=== PATIENT | male | born 1960 | race Caucasian/White ===

== ENCOUNTER 2017-01-12 10:19 | Inpatient (IN) | payer OTHER ==
[2017-01-12 11:38] LABS: BASO # 0.02 K/mm3 (0.0-2.0); BASO % 0.2 % (0.0-3.0); EOS # 0.1 (0.0-0.7); EOS % 1.1 % (1.5-5.0); GRAN # 4.85 (1.4-6.5); GRAN % 52.6 % (50.0-68.0); LYMPH # 3.8 (1.2-3.4); LYMPH % 41.3 % (22.0-35.0); MEAN CELL VOLUME 86.9 fL (80.0-105.0); MEAN CORPUSCULAR HEMOGLOBIN 30.2 pg (25.0-35.0); MEAN CORPUSCULAR HGB CONC 34.7 g/dl (31.0-37.0); MEAN PLATELET VOLUME 10.4 fl (7.0-11.0); MONO # 0.4 (0.1-0.6); MONO % 4.8 % (1.0-6.0); PLATELET COUNT 167 10^3/uL (120.0-450.0); RBC 4.64 10^6/uL (3.5-6.1); RED CELL DISTRIBUTION WIDTH 13.1 % (11.5-14.5); WHITE BLOOD COUNT 9.2 10^3/ul (4.5-11.0)
--- NOTE | 2017-01-12 11:39 | ED PDOC ---
Arrival/HPI - General Chief Complaint: Shortness Of Breath Time Seen by Provider: 01/12/17 10:25 Historian: Patient - History of Present Illness Narrative History of Present Illness (Text): 01/12/17 11:42 A 56 year old male, whose past medical history includes diabetes, presents to the emergency department complaining of exertional chest pain and dyspnea on exertion for about a week. Denies any other complaints at this time. PMD: Dr. Enciso Symptom Onset: Sudden Symptom Course: Unchanged Activities at Onset: Rest Context: Home Past Medical History - Provider Review Nursing Documentation Reviewed: Yes - Cardiac Hx Cardiac Disorders: Yes Hx Hypertension: Yes - Pulmonary Hx Respiratory Disorders: No - Neurological Hx Neurological Disorder: No - HEENT Hx HEENT Disorder: No - Renal Hx Renal Disorder: No - Endocrine/Metabolic Hx Endocrine Disorders: Yes Hx Diabetes Mellitus Type 2: Yes - Hematological/Oncological Hx Blood Disorders: No - Integumentary Hx Dermatological Disorder: No - Musculoskeletal/Rheumatological Hx Musculoskeletal Disorders: No - Gastrointestinal Hx Gastrointestinal Disorders: No - Genitourinary/Gynecological Hx Genitourinary Disorders: No - Psychiatric Hx Psychophysiologic Disorder: No Hx Substance Use: No Family/Social History - Physician Review Nursing Documentation Reviewed: Yes Family/Social History: No Known Family HX Smoking Status: Never Smoked Hx Alcohol Use: No Hx Substance Use: No Allergies/Home Meds Allergies/Adverse Reactions: Allergies No Known Allergies Allergy (Verified 01/12/17 10:30) Home Medications: Home Meds Medication Instructions Recorded Confirmed Amoxicillin [Amoxil 500 mg Cap] 500 mg PO BID 01/12/17 01/12/17 Cetirizine HCl [Allergy Relief] 10 mg PO DAILY 01/12/17 01/12/17 Clarithromycin [Biaxin Filmtab] 500 mg PO BID 01/12/17 01/12/17 Ergocalciferol (Vitamin D2) 50,000 unit PO SUN 01/12/17 01/12/17 [Vitamin D2] Montelukast [Singulair] 10 mg PO DAILY 01/12/17 01/12/17 Omeprazole 20 mg PO DAILY 01/12/17 01/12/17 Review of Systems - Physician Review All systems were reviewed & negative as marked: Yes Physical Exam - Physical Exam Narrative Physical Exam (Text): 01/12/17 11:40 - Review of Systems Constitutional: Normal. absent: Fatigue, Weight Change, Fevers Eyes: Normal ENT: Normal Respiratory: dyspnea on exertion absent: SOB, Cough, Sputum Cardiovascular: chest pain absent: Palpitations, Syncope Gastrointestinal: Normal absent: Abdominal pain, Diarrhea, Nausea, Vomiting Genitourinary: Normal. absent: Dysuria, Frequency, Hematuria Musculoskeletal: Normal. absent: Arthralgias, Back Pain, Neck Pain Skin: Normal Neurological: Normal absent: Focal Weakness Endocrine: Normal Hemo/Lymphatic: Normal Psychiatric: Normal - Physical exam Patient appears age appropriate, speaking full sentences without difficulty - Systems Exam Head: Present: Atraumatic, Normocephalic Pupils: Present: PERRL Extraocular Muscles: Present: EOMI Conjunctiva: Present: Normal Mouth: Present: Moist Mucous Membranes Neck: Present: Normal Range of Motion. No: MIDLINE TENDERNESS, Paraspinal Tenderness Respiratory/Chest: Present: Clear to Auscultation, Good Air Exchange. No: Respiratory Distress, Accessory Muscle Use, Tachypnic Cardiovascular: Present: Regular Rate and Rhythm, Normal S1, S2, Peripheral Pulses Present. No: Murmurs Abdomen: Present: Normal Bowel Sounds, No: Tenderness, Peritoneal Signs, Rebound, Guarding, Distention Back: Present: Normal Inspection. No: Midline Tenderness, Paraspinal Tenderness Upper Extremity: Present: Normal Inspection. No: Cyanosis, Edema Lower Extremity: Present: Normal Inspection. No: Edema Neurological: Present: GCS=15, Speech Normal, cranial nerves II through XII fully intact with no cerebellar abnormality, neuro-sensory fully intact. No focal neurological deficits. Skin: Present: Warm, Dry, Normal Color. No: Rashes Lymphatic: Present: OX3, NI, NC Psychiatric: Present: Alert, Oriented x 3, Normal Insight, Normal Concentration Vital Signs Reviewed: Yes Vital Signs Temp Pulse Resp BP Pulse Ox 01/12/17 13:27 83 18 110/76 96 01/12/17 12:27 88 18 126/77 98 01/12/17 11:00 16 01/12/17 10:30 97.5 F L 100 H 20 137/92 H 96 Temperature: Afebrile Blood Pressure: Hypertensive Pulse: Regular Respiratory Rate: Normal Appearance: Positive for: Well-Appearing, Non-Toxic, Comfortable Pain Distress: None Mental Status: Positive for: Alert and Oriented X 3 Medical Decision Making ED Course and Treatment: 01/12/17 11:34 Impression: A 56 year old male with chest pain. Differential Diagnosis included but are not limited to: Congestive heart failure vs. PE vs. acute coronary syndrome vs. pneumonia Plan: -- EKG -- chest xray -- labs -- Aspirin, Nitroglycerin -- Reassess and disposition Progress Notes: EKG: Ordered, reviewed, and independently interpreted the EKG. Rate : 103 BPM Rhythm : Sinus tachycardic Interpretation : No ST segment elevations, S1 Q3T3 pattern Comparison : No previous EKG for comparison. 01/12/17 13:09 pt states pain better with asa/ntg ddimer positive troponin and BNP elevated VSS lovenox ordered CTA pending pt and family have been made aware of findings and plan Chest xray interpreted by ED physician shows no pneumothorax, no cardiomegaly, no infiltrates 01/12/17 14:[address] Enciso, accepted admission with Angel Diallo and Jonathon on consult 01/12/17 15:[address] Moreau, states pt has a large PE with R. heart strain. lovenox already ordered pt in no distress at this time Dr. Vannessa Neff paged 01/12/17 16:00 01/12/17 16:[address] Rojas from [facility], [facility] will evaluate 01/12/17 16:[address] Rojas, accepted to the [facility] dw Dr. Vannessa Neff, [facility] will see pt - Lab Interpretations Lab Results: 01/12/17 11:25 01/12/17 11:25 Lab Results 01/12/17 11:25: Sodium 136, Potassium 4.8, Chloride 104, Carbon Dioxide 21, Anion Gap 16, BUN 16, Creatinine 1.1, Est GFR ( Amer) > 60, Est GFR (Non- Af Amer) > 60, Random Glucose 158 H, Calcium 9.4, Total Bilirubin 1.2, AST 38, ALT 72 H, Alkaline Phosphatase 70, Lactate Dehydrogenase 559, Total Creatine Kinase 82, Troponin I 0.42 H*, NT-Pro-B Natriuret Pep 2220 H, Total Protein 7.2 , Albumin 4.0, Globulin 3.2, Albumin/Globulin Ratio 1.3 01/12/17 11:25: PT 12.7 H, INR 1.18 H, APTT 28.3, D-Dimer, Quantitative 3.01 H 01/12/17 11:25: WBC 9.2, RBC 4.64, Hgb 14.0, Hct 40.3 L, MCV 86.9, MCH 30.2, MCHC 34.7, RDW 13.1, Plt Count 167, MPV 10.4, Gran % 52.6, Lymph % (Auto) 41.3 H , [place] % (Auto) 4.8, Eos % (Auto) 1.1 L, Baso % (Auto) 0.2, Gran # 4.85, Lymph # 3.8 H, [place] # 0.4, Eos # 0.1, Baso # 0.02 I have reviewed the lab results: Yes - RAD Interpretation Radiology Orders: 01/12/17 11:10 CHEST PORTABLE [RAD] Stat 01/12/17 12:00 ANGIO CHEST PE PROTOCOL [CT] Stat 01/12/17 16:25 DUPLEX LOWER EXTRM VEIN BILAT [US] Stat - EKG Interpretation Interpreted by ED Physician: Yes Type: 12 lead EKG - Medication Orders Current Medication Orders: Discontinued Medications Aspirin (Aspirin Chewable) 324 mg PO STAT STA Stop: 01/12/17 11:11 Last Admin: 01/12/17 11:27 Dose: 324 mg Enoxaparin Sodium (Lovenox) 90 mg SC STAT STA PRN Reason: Protocol Stop: 01/12/17 12:25 Last Admin: 01/12/17 12:33 Dose: 90 mg Iodixanol (Visipaque) Confirm Administered Dose 150 ml IV .STK-MED ONE Stop: 01/12/17 14:20 Nitroglycerin (Nitrostat Sl Tab) 0.3 mg SL STAT STA Stop: 01/12/17 11:11 Last Admin: 01/12/17 11:27 Dose: 0.3 mg - Scribe Statement The provider has reviewed the documentation as recorded by the Alvaro Fontenot Provider Scribe Attestation: All medical record entries made by the Mairaibshanthi were at my direction and personally dictated by me. I have reviewed the chart and agree that the record accurately reflects my personal performance of the history, physical exam, medical decision making, and the department course for this patient. I have also personally directed, reviewed, and agree with the discharge instructions and disposition. Disposition/Present on Arrival - Present on Arrival Any Indicators Present on Arrival: No History of DVT/PE: No History of Uncontrolled Diabetes: No Urinary Catheter: No History of Decub. Ulcer: No History Surgical Site Infection Following: None - Disposition Have Diagnosis and Disposition been Completed?: Yes Diagnosis: Pulmonary embolism Disposition: HOSPITALIZED Disposition Time: 14:02 Patient Plan: Admission Condition: FAIR Referrals: Gloria Enciso MD [Primary Care Provider] - Follow up with primary
[2017-01-12 11:47] LABS: INR 1.18 (0.93-1.08); PARTIAL THROMBOPLASTIN TIME 28.3 Seconds (23.7-30.8); PROTHROMBIN TIME 12.7 Seconds (9.9-11.8)
[2017-01-12 11:48] LABS: ALB/GLOB RATIO 1.3 (1.1-1.8); ALT/SGPT 72 U/L (7-56); AST/SGOT 38 U/L (15-59); BLOOD UREA NITROGEN 16 mg/dL (7-21); CALCIUM 9.4 mg/dL (8.4-10.5); D DIMER 3.01 mg/L FEU (0-0.50); GFR AFRICAN-AMERICAN > 60; GFR NON-AFRICAN AMERICAN > 60
[2017-01-12 11:57] LABS: B-TYPE NATRIURETIC PEPTIDE 2220 pg/mL (0-450)
[2017-01-12] MEDS ORDERED: Enoxaparin 100 mg Syringe SC STA (12:24)
[2017-01-12 12:26] LABS: TROPONIN I 0.42 ng/mL
--- NOTE | 2017-01-12 12:51 | RAD ---
HISTORY: cough COMPARISON: No prior. FINDINGS: LUNGS: No active pulmonary disease. PLEURA: No significant pleural effusion identified, no pneumothorax apparent. CARDIOVASCULAR: Normal. OSSEOUS STRUCTURES: No significant abnormalities. VISUALIZED UPPER ABDOMEN: Normal. OTHER FINDINGS: None. IMPRESSION: No active disease.
[2017-01-12] MEDS ORDERED: Iodixanol 320 mg/ml 150 ml Bottle IV ONE (14:19)
--- NOTE | 2017-01-12 16:09 | CT ---
PROCEDURE: CT Chest with contrast (Pulmonary Angiogram) HISTORY: r/o PE COMPARISON: None available. TECHNIQUE: Axial computed tomography images were obtained of the chest in the pulmonary arterial phase of enhancement. Coronal and sagittal reformatted images were created and reviewed. Intravenous contrast dose: 150 cc of Visipaque 320 Radiation dose: Total exam DLP = 804 mGy-cm. This CT exam was performed using one or more of the following dose reduction techniques: Automated exposure control, adjustment of the mA and/or kV according to patient size, and/or use of iterative reconstruction technique. FINDINGS: PULMONARY ARTERIES: Extensive pulmonary emboli are seen involving the proximal pulmonary arteries bilaterally involving the upper and lower lobes. There is also dilatation of the right ventricle consistent with right ventricular strain. The findings were discussed with Dr. Navarrete At 3:50 p.m. AORTA: No acute findings. No thoracic aortic aneurysm. LUNGS: Unremarkable. No nodule, mass or pulmonary consolidation. PLEURAL SPACES: Unremarkable. No effusion or pneuomothorax. HEART: Unremarkable. No cardiomegaly. No significant pericardial effusion. LYMPH NODES: No lymphadenopathy. BONES, CHEST WALL: Unremarkable. No fracture or destructive lesion OTHER FINDINGS: Unremarkable. IMPRESSION: Extensive severe pulmonary emboli in the upper and lower lobes of both lungs with evidence of right ventricular strain.
--- NOTE | 2017-01-12 16:34 | CARD ---
APPROVED REPORT EKG Measurement Heart [id number] <Conclusion> Sinus tachycardia Possible Inferior infarct, age undetermined Anterolateral infarct, age undetermined Abnormal ECG
[2017-01-12] MEDS ORDERED: Lidocaine 2% Inj (20ml) ONE (16:59)
[2017-01-12] MEDS ORDERED: Iodixanol 320 MG/ML 100 ML BOTTLE IV ONE (17:00)
[2017-01-12] MEDS ORDERED: Iodixanol 320 MG/ML 200 ML BOTTLE IV ONE (17:00)
[2017-01-12] MEDS ORDERED: Midazolam 2 MG/2 ML VIAL ONE ×2 (17:00→17:29)
[2017-01-12] MEDS ORDERED: Nitroglycerin 50mg in D5W 50 MG/250 ML BOTTLE IV ONE (17:01)
--- NOTE | 2017-01-12 17:21 | CP.PCM.CON ---
History of Present Illness - History of Present Illness History of Present Illness: 56 y/o M presented to the ER w/ SOB, chest heaviness and difficulty ambulating x 10 days. He explains that he has been feeling SOB but has been hoping the his symptoms would go away but they persisted and brought him to the ER for further evaluation. 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 No further risk factors were noted. In the ER he was found to be tachycardic, SOB and Chest CT was done which showed large B/L P.E. Review of Systems - Constitutional Constitutional: Fatigue, Lethargy, Malaise - EENT Eyes: absent: As Per HPI, Blind Spots, Blurred Vision, Change in Vision, Decreased Night Vision, Diplopia, Discharge, Dry Eye, Exophthalmos, Floaters, Irritation, Itchy Eyes, Loss of Peripheral Vision, Pain, Photophobia, Requires Corrective Lenses, Sees Flashes, Spots in Vision, Tunnel Vision, Other Visual Disturbances, Loss of Vision, Other Ears: absent: As Per HPI, Decreased Hearing, Ear Discharge, Ear Pain, Tinnitus, Abnormal Hearing, Disequilibrium, Dizziness, Other Nose/Mouth/Throat: absent: As Per HPI, Epistaxis, Nasal Congestion, Nasal Discharge, Nasal Obstruction, Nasal Trauma, Nose Pain, Post Nasal Drip, Sinus Pain, Sinus Pressure, Bleeding Gums, Change in Voice, Dental Pain, Dry Mouth, Dysphagia, Halitosis, Hoarsness, Lip Swelling, Mouth Lesions, Mouth Pain, Odynophagia, Sore Throat, Throat Swelling, Tongue Swelling, Facial Pain, Neck Pain, Neck Mass, Other - Respiratory Respiratory: Dyspnea, Dyspnea on Exertion - Gastrointestinal Gastrointestinal: absent: As Per HPI, Abdominal Pain, Belching, Bloating, Change in Bowel Habits, Change in Stool Character, Coffee Ground Emesis, Constipation, Cramping, Diarrhea, Dyspepsia, Dysphagia, Early Satiety, Excessive Flatus, Fecal Incontinence, Heartburn, Hematemesis, Hematochezia, Loose Stools, Melena, Nausea, Odynophagia, Temesmus, Vomiting, Other Past Patient History - Past Social History Smoking Status: Never Smoked - CARDIAC Hx Cardiac Disorders: Yes Hx Hypertension: Yes - PULMONARY Hx Respiratory Disorders: No - NEUROLOGICAL Hx Neurological Disorder: No - HEENT Hx HEENT Problems: No - RENAL Hx Chronic Kidney Disease: No - ENDOCRINE/METABOLIC Hx Endocrine Disorders: Yes Hx Diabetes Mellitus Type 2: Yes - HEMATOLOGICAL/ONCOLOGICAL Hx Blood Disorders: No - INTEGUMENTARY Hx Dermatological Problems: No - MUSCULOSKELETAL/RHEUMATOLOGICAL Hx Musculoskeletal Disorders: No - GASTROINTESTINAL Hx Gastrointestinal Disorders: No - GENITOURINARY/GYNECOLOGICAL Hx Genitourinary Disorders: No - PSYCHIATRIC Hx Psychophysiologic Disorder: No Hx Substance Use: No - SURGICAL HISTORY Hx Surgeries: No Meds Allergies/Adverse Reactions: Allergies Allergy/AdvReac Type Severity Reaction Status Date / Time No Known Allergies Allergy Verified 01/12/17 10:30 Physical Exam - Head Exam Head Exam: ATRAUMATIC - Eye Exam Eye Exam: absent: Conjunctival injection, EOMI, Normal appearance, Nystagmus, Periorbital swelling, Periorbital tenderness, PERRL, Scleral icterus Pupil Exam: absent: Fixed, Irregular, Miosis, Mydriatic, NORMAL ACCOMODATION, PERRL, Unequal - ENT Exam ENT Exam: Normal Exam - Neck Exam Neck exam: Positive for: Normal Inspection - Respiratory Exam Respiratory Exam: Clear to Auscultation Bilateral, NORMAL BREATHING PATTERN - Cardiovascular Exam Cardiovascular Exam: REGULAR RHYTHM - GI/Abdominal Exam GI & Abdominal Exam: Normal Bowel Sounds, Soft - Extremities Exam Extremities exam: Positive for: normal inspection - Back Exam Back exam: NORMAL INSPECTION - Neurological Exam Neurological exam: Normal Gait, Oriented x3 Results - Vital Signs Recent Vital Signs: Last Vital Signs Temp 97.5 F L 01/12/17 10:30 Pulse 100 H 01/12/17 16:47 Resp 16 01/12/17 16:47 BP 105/77 01/12/17 16:47 Pulse Ox 98 01/12/17 16:47 - Labs Result Diagrams: 01/12/17 11:25 01/12/17 11:25 Labs: Laboratory Results - last 24 hr 01/12/17 01/12/17 01/12/17 11:25 11:25 11:25 WBC 9.2 RBC 4.64 Hgb 14.0 Hct 40.3 L MCV 86.9 MCH 30.2 MCHC 34.7 RDW 13.1 Plt Count 167 MPV 10.4 Gran % 52.6 Lymph % (Auto) 41.3 H [place] % (Auto) 4.8 Eos % (Auto) 1.1 L Baso % (Auto) 0.2 Gran # 4.85 Lymph # 3.8 H [place] # 0.4 Eos # 0.1 Baso # 0.02 PT 12.7 H INR 1.18 H APTT 28.3 D-Dimer, Quantitative 3.01 H Sodium 136 Potassium 4.8 Chloride 104 Carbon Dioxide 21 Anion Gap 16 BUN 16 Creatinine 1.1 Est GFR ( Amer) > 60 Est GFR (Non-Af Amer) > 60 Random Glucose 158 H Calcium 9.4 Total Bilirubin 1.2 AST 38 ALT 72 H Alkaline Phosphatase 70 Lactate Dehydrogenase 559 Total Creatine Kinase 82 Troponin I 0.42 H* NT-Pro-B Natriuret Pep 2220 H Total Protein 7.2 Albumin 4.0 Globulin 3.2 Albumin/Globulin Ratio 1.3 Assessment & Plan - Assessment and Plan (Free Text) Assessment: 56 y/o M w/ B/L large P.E risk factor at this point is non ambulatory state . Will need Hypercoaguable work up to r/o Protein C& S, factor 5 def, etc. RH , connective tissue work up Lovenox treatment dose given. ECHo and Lower ext Venous dupplex ordered IR consulted for possible ECOS catheter placement/ TPA catheter directed. ICU monitoring overnight. cc time 72 min
[2017-01-12] MEDS ORDERED: D5W IV ONE (17:23)
[2017-01-12] MEDS ORDERED: HEPARIN IV ONE (17:23)
[2017-01-12] MEDS ORDERED: Oxycodone/Acetaminophen 5/325 mg Tab PO PRN (18:55)
[2017-01-12] MEDS ORDERED: HYDROmorphone 2 mg/ml ISec IVP PRN (19:00)
[2017-01-12 20:46] LABS: HDL CHOLESTEROL 24 mg/dL (29-60)
[2017-01-12 20:57] LABS: LDL CHOLESTEROL 138 mg/dL (0-129)
[2017-01-12] MEDS: Insulin Reg-LOW-Coverage SC SCH (22:14)
[2017-01-12 23:01] VITALS: BMI 35.4
[2017-01-13 05:48] LABS: BASO # 0.02 K/mm3 (0.0-2.0); BASO % 0.2 % (0.0-3.0); EOS % 0.4 % (1.5-5.0); GRAN # 6.42 (1.4-6.5); HEMOGLOBIN 12.9 gm/dL (14.0-18.0); LYMPH # 2.5 (1.2-3.4); LYMPH % 26.5 % (22.0-35.0); MEAN CELL VOLUME 86.1 fL (80.0-105.0); MEAN CORPUSCULAR HEMOGLOBIN 29.9 pg (25.0-35.0); MEAN CORPUSCULAR HGB CONC 34.7 g/dl (31.0-37.0); MEAN PLATELET VOLUME 10.5 fl (7.0-11.0); MONO # 0.5 (0.1-0.6); MONO % 4.9 % (1.0-6.0); PLATELET COUNT 147 10^3/uL (120.0-450.0); RBC 4.32 10^6/uL (3.5-6.1); RED CELL DISTRIBUTION WIDTH 13.2 % (11.5-14.5); WHITE BLOOD COUNT 9.4 10^3/ul (4.5-11.0)
--- NOTE | 2017-01-13 05:52 | CON ---
DATE: 01/12/2017 REFERRING PHYSICIAN: Dr. Enciso. REASON FOR CONSULTATION: Pulmonary embolism, may have sleep apnea syndrome. 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 He has ambulating difficulty from quite a few days. In the ER, he had a CT done which shows bilateral pulmonary embolism with strain of right heart, seen by interventional radiology, Dr. Stewart Neff. He is taking into vascular lab and carrying echo with thrombolytic therapy, seen by me after the procedure. Awake, alert, already feeling better, feel less pressure in the chest and shortness of breath. No hemoptysis, no hematemesis, no hematuria. No diarrhea reported. PAST MEDICAL HISTORY: Diabetes and hypertension. SOCIAL HISTORY: Denied any smoking or alcohol use. 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 FAMILY HISTORY: No significant cardiopulmonary disease reported. MEDICATIONS: He is on Ancef 1 g, he was given Ativan 2 mg q. 6 hours p.r.n. for anxiety, Dilaudid 2 mg IV q. 6 hours p.r.n., insulin coverage, Percocet 5/325 q. 6 hours p.r.n., Protonix 40 mg daily, Tylenol on a p.r.n. basis. REVIEW OF SYSTEMS: No headache, no rhinitis. Has cough and shortness of breath, chest heaviness. No nausea, no hematuria. No significant leg swelling. PHYSICAL EXAMINATION GENERAL: Lying in the bed, mild distress secondary to shortness of breath. VITAL SIGNS: Temp is 98, heart rate is 93, respiratory rate is 20, blood pressure is 110/76, pulse ox 96% on room air. HEENT: Moist mucous membranes. Small oral cavity crowded. NECK: Short, thick neck. LUNGS: A few scattered crackles. HEART: S1 and S2. ABDOMEN: Soft and nontender. No organomegaly. EXTREMITIES: No edema. NEUROLOGICAL: Awake, alert. Follows simple commands. LABORATORY DATA: Shows hemoglobin 14.0, hematocrit 40.3, WBC 9.2, and platelet count is 167. INR is 1.18. D-dimer was 3.01. Sodium 136, potassium 4.8, chloride 104, bicarbonate 21, BUN 16, creatinine 1.1, glucose 119, calcium 9.4. AST 38, ALT 72, alkaline phosphatase is 70, troponin is 0.42. Pro-BNP is 2220. CAT scan of the head which is done in the ER shows extensive severe pulmonary emboli in the upper and lower lobes, both lungs with evidence of right ventricular strain. IMPRESSION AND PLAN: Bilateral pulmonary embolism with right heart strain with positive BNP and cardiac enzymes, status post echo-based thrombolytic therapy of the bilateral pulmonary arteries, clots. Also, received retrievable IVC filter. Case discussed with Dr. Stewart Neff, Also, spoke to Dr. Enciso. The patient will be transferred to intensive care unit. Need close cardiopulmonary monitoring, sleep apnea precaution. If desaturates, may use BiPAP 12/8 with 35% oxygen while sleeping. The patient will be seen by Dr. Stewart Neff tomorrow to take off the catheters out. The patient may need a tentative sleep study as outpatient. We will follow up echocardiography to assess the pulmonary pressures. Shara Diallo MD
[2017-01-13 05:56] LABS: INR 1.21 (0.93-1.08); PARTIAL THROMBOPLASTIN TIME 46.7 Seconds (23.7-30.8); PROTHROMBIN TIME 13.1 Seconds (9.9-11.8)
[2017-01-13 06:37] LABS: ALB/GLOB RATIO 1.2 (1.1-1.8); ALBUMIN 3.5 g/dL (3.0-4.8); ALT/SGPT 58 U/L (7-56); AST/SGOT 31 U/L (15-59); BLOOD UREA NITROGEN 12 mg/dL (7-21); CALCIUM 8.4 mg/dL (8.4-10.5); GFR AFRICAN-AMERICAN > 60; GFR NON-AFRICAN AMERICAN > 60
--- NOTE | 2017-01-13 07:03 | CP.PCM.PN ---
<Maria A De La oTrre - Last Filed: 01/13/17 15:52> Subjective - Date & Time of Evaluation Date of Evaluation: 01/13/17 Time of Evaluation: 07:04 - Subjective Subjective: Maria A De La Torre DO, PGY-1, ICU progress note Patient seen and examined. Patient reports having a non-productive cough that kept him awake overnight. He is in no acute distress. No events reported overnight. Objective - Vital Signs/Intake and Output Vital Signs (last 24 hours): Temp Pulse Resp BP Pulse Ox 97.1 F L 88 22 132/81 96 01/12/17 21:33 01/13/17 06:20 01/13/17 06:20 01/13/17 06:15 01/13/17 01:00 Intake and Output: 01/12/17 01/13/17 18:59 06:59 Intake Total 2640 Output Total 800 Balance 1840 - Medications Medications: Current Medications Acetaminophen (Tylenol 325mg Tab) 650 mg PO Q4H PRN PRN Reason: Pain, Mild (1-3) Hydromorphone HCl (Dilaudid) 2 mg IVP Q6H PRN PRN Reason: Pain, severe (8-10) Cefazolin Sodium (Ancef 1gm In Ns) 1 gm in 100 mls @ 100 mls/hr IVPB 1900 [facility] Insulin Human Regular (Humulin R Low) 0 units SC ACHS STACY PRN Reason: Protocol Last Admin: 01/12/17 22:14 Dose: Not Given Lorazepam (Ativan) 2 mg IVP Q6H PRN PRN Reason: Anxiety Oxycodone/Acetaminophen (Percocet 5/325 Mg Tab) 1 tab PO Q6H PRN PRN Reason: Pain, moderate (4-7) Stop: 01/15/17 18:56 Pantoprazole Sodium (Protonix Inj) 40 mg IVP DAILY STACY - Labs Labs: 01/13/17 05:00 PT 13.1 Seconds (9.9-11.8) H 01/13/17 05:00 INR 1.21 (0.93-1.08) H 01/13/17 05:00 APTT 46.7 Seconds (23.7-30.8) H 01/13/17 05:00 - Constitutional Appears: Well, No Acute Distress - Head Exam Head Exam: ATRAUMATIC, NORMOCEPHALIC - Eye Exam Eye Exam: EOMI, Normal appearance - ENT Exam ENT Exam: Mucous Membranes Moist, Normal Exam - Neck Exam Neck Exam: Normal Inspection. absent: Tenderness - Respiratory Exam Respiratory Exam: NORMAL BREATHING PATTERN. absent: Rales, Rhonchi, Stridor - Cardiovascular Exam Cardiovascular Exam: REGULAR RHYTHM, +S1, +S2 - Rectal Exam Rectal Exam: Deferred - Extremities Exam Extremities Exam: Normal Inspection, Pedal Edema Additional comments: Unable to assess lower extremities given patient is in leg immobilizers - Neurological Exam Neurological Exam: Alert, Awake, Oriented x3 - Psychiatric Exam Psychiatric exam: Normal Affect, Normal Mood Assessment and Plan - Assessment and Plan (Free Text) Assessment: Mr. Galindo is a pleasant 56 y/o PMH DM II found to have multiple pulmonary emboli in the right and left pulmonary arteries with dilatation of the RV consistent with right heart strain. Patient underwent EKOS thrombolysis for his pulmonary emboli, and was admitted to the ICU for closer monitoring. Plan: Neurologic: AAO x4. GCS 15, no focal neurological deficits. Respiratory: Keep O2 saturation above 90%. Cardiovascular: Maintain MAP > 65. Hemodynamically stable, no longer complaining of chest heaviness. Patient is on EKOS for 24 hours, will be reassessed by IR. No longer on tPA. Heparin continued. Patient had bleeding at catheter site, resolved with pressure. Will continue to monitor LE pulses. ECHO and US of LE pending. Pulmonary: EKOS thrombolysis with systemic heparin and localized tPA. Patient currently saturating well. Maintain SaO2 above 90%. GI: Protonix for GI prophylaxis. Renal: Replace electrolytes. BUN and Cr stable. Strict I/O. Endocrine: Maintain 140-180. ISS [address], did not require any insulin. Heme: Hypercoagulable work-up pending: Protein C and S, Factor V Leiden mutation , Antithrombin 3 deficiency, and lupus anticoagulant. ID: No fever, leukocytosis, continue to monitor. <Crystal COLVIN,Derrek H - Last Filed: 01/13/17 19:43> Objective - Vital Signs/Intake and Output Vital Signs (last 24 hours): Temp Pulse Resp BP Pulse Ox 97.1 F L 76 15 106/63 97 01/12/17 21:33 01/13/17 18:20 01/13/17 18:20 01/13/17 18:15 01/13/17 18:20 Intake and Output: 01/13/17 01/14/17 18:59 06:59 Intake Total 1560 Output Total 925 Balance 635 - Medications Medications: Current Medications Acetaminophen (Tylenol 325mg Tab) 650 mg PO Q4H PRN PRN Reason: Pain, Mild (1-3) Hydromorphone HCl (Dilaudid) 2 mg IVP Q6H PRN PRN Reason: Pain, severe (8-10) Cefazolin Sodium (Ancef 1gm In Ns) 1 gm in 100 mls @ 100 mls/hr IVPB 1900 [facility] Heparin Sodium/Dextrose (Heparin 25,000 Units/250ml In D5w) 25,000 units in 250 mls @ 17.472 mls/hr IV .[id number] PRN; Protocol; 18 UNITS/KG/HR PRN Reason: ADJUST RATE PER PROTOCOL Insulin Human Regular (Humulin R Low) 0 units SC ACHS STACY PRN Reason: Protocol Last Admin: 01/13/17 18:35 Dose: Not Given Lorazepam (Ativan) 2 mg IVP Q6H PRN PRN Reason: Anxiety Oxycodone/Acetaminophen (Percocet 5/325 Mg Tab) 1 tab PO Q6H PRN PRN Reason: Pain, moderate (4-7) Stop: 01/15/17 18:56 Last Admin: 01/13/17 11:40 Dose: 1 tab Pantoprazole Sodium (Protonix Inj) 40 mg IVP DAILY [facility] Last Admin: 01/13/17 09:56 Dose: 40 mg - Labs Labs: 01/13/17 05:00 01/13/17 04:45 PT 13.1 Seconds (9.9-11.8) H 01/13/17 05:00 INR 1.21 (0.93-1.08) H 01/13/17 05:00 APTT 46.7 Seconds (23.7-30.8) H 01/13/17 05:00 Attending/Attestation - Attestation I have personally seen and examined this patient.: Yes I have fully participated in the care of the patient.: Yes I have reviewed all pertinent clinical information, including history, physical exam and plan: Yes Notes (Text): 01/13/17 19:42 56 y/o M w/ B/L P.E On EKOS protocol per IR. No bleeding noted or overnight events. Plan to return to IR today to remove catheters and monitor RH function and PA pressures. Hypercoaguable work up in progress. Continue on heparin and transition to oral anticoagulant. cc time 55 min
[2017-01-13] MEDS ORDERED: Pantoprazole 40 mg EC Tab PO SCH (07:30)
[2017-01-13] MEDS: Insulin Reg-LOW-Coverage SC SCH ×4 (09:40→22:20)
[2017-01-13 11:27] LABS: TROPONIN I 0.37 ng/mL
--- NOTE | 2017-01-13 13:33 | CON ---
DATE: 01/13/2017 REASON FOR CONSULTATION: Cardiac evaluation, positive troponin admitted with the PE. 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 CAT scan done that shows a large bilateral PE. Denies any chest pain. Denies any recent aggression or shortness of breath, prior to this 10 days. PAST MEDICAL HISTORY: Nothing significant. Recently the patient was given possible metformin seen by Dr. Enciso to prior prevention of diabetes. SOCIAL HISTORY: Denies any history of alcohol abuse. FAMILY HISTORY: Noncontributory. No history of coronary artery disease. CURRENT MEDICATION: They are practically not taking anything, suppose to take metformin, but he is not taking anything before he get admitted here. SOCIAL HISTORY: Denies any history of alcohol abuse. 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 REVIEW OF SYSTEMS: As per HPI. PHYSICAL EXAMINATION: As follows: GENERAL: Height of the patient 5 feet. Weight of the patient 200 pounds, body mass index 35.4 kg/m2. VITAL SIGNS: Heart rate 88, blood pressure 132/81. HEENT: PERRLA. Extraocular muscles are intact. NECK: Supple. No carotid bruit, no thyromegaly. CHEST: Clear to auscultation. HEART: S1 and S2 regular. ABDOMEN: Soft. EXTREMITIES: Clubbing and cyanosis negative. LABORATORY DATA: Blood workup as follows; WBC 9.5, hemoglobin 12.9, hematocrit 37.2, and platelet count of 147. Chemistries shows sodium 139, potassium 4.0, chloride 101. Carbon dioxide 10, anion gap of 15, BUN 12, creatinine 1.0, troponin 0.42, BNP [address]. CT CAT scan shows bilateral PE. Extensive severe emboli in the upper and lower lobe both lungs evidence of right ventricular strain also. IMPRESSION: A 56-year-old obese male with no significant past medical history sedentary life admitted with the shortness of breath 10 days duration, bilateral large pulmonary embolism, positive troponin most likely secondary to right ventricular strain and ischemia. Followup serial CPK. Continue IV heparin, get echo to assess left ventricle function as well as pulmonary hypertension. Lipid profile, TSH and hemoglobin A1c. Once the patient stable probably consider months per discuss stratification. We will get the lipid profile, TSH and hemoglobin A1c. We will follow with you. Thank you Dr. Enciso for providing this opportunity in taking care of patient, Josie Fernandez. We will add in the morning CPK and follow up the trend. Shara Holt MD
--- NOTE | 2017-01-13 15:59 | CP.PCM.HP ---
History of Present Illness - History of Present Illness History of Present Illness: 01/12/17 A 56 year old male, whose past medical history includes diabetes, presents to the emergency department complaining of exertional chest pain and dyspnea on exertion for about a week. Denies any other complaints at this time. Present on Admission - Present on Admission Any Indicators Present on Admission: No Review of Systems - Review of Systems Systems not reviewed;Unavailable: Unstable Vital Signs - Constitutional Constitutional: As Per HPI - EENT Eyes: As Per HPI Ears: As Per HPI Nose/Mouth/Throat: As Per HPI - Cardiovascular Cardiovascular: As Per HPI - Respiratory Respiratory: Cough, Dyspnea on Exertion, Wheezing, Chest Congestion - Gastrointestinal Gastrointestinal: As Per HPI - Genitourinary Genitourinary: As Per HPI - Reproductive: Male Reproductive:Male: As Per HPI - Musculoskeletal Musculoskeletal: As Per HPI - Integumentary Integumentary: As Per HPI - Neurological Neurological: As Per HPI - Psychiatric Psychiatric: As Per HPI - Endocrine Endocrine: As Per HPI - Hematologic/Lymphatic Hematologic: As Per HPI Past Patient History - Past Social History Smoking Status: Never Smoked - CARDIAC Hx Cardiac Disorders: Yes Hx Hypertension: Yes - PULMONARY Hx Respiratory Disorders: No - NEUROLOGICAL Hx Neurological Disorder: No - HEENT Hx HEENT Problems: No - RENAL Hx Chronic Kidney Disease: No - ENDOCRINE/METABOLIC Hx Endocrine Disorders: Yes Hx Diabetes Mellitus Type 2: Yes - HEMATOLOGICAL/ONCOLOGICAL Hx Blood Disorders: No - INTEGUMENTARY Hx Dermatological Problems: No - MUSCULOSKELETAL/RHEUMATOLOGICAL Hx Musculoskeletal Disorders: No Hx Falls: No - GASTROINTESTINAL Hx Gastrointestinal Disorders: No - GENITOURINARY/GYNECOLOGICAL Hx Genitourinary Disorders: No - PSYCHIATRIC Hx Psychophysiologic Disorder: No - SURGICAL HISTORY Hx Surgeries: No Meds Allergies/Adverse Reactions: Allergies Allergy/AdvReac Type Severity Reaction Status Date / Time No Known Allergies Allergy Verified 01/12/17 10:30 Physical Exam - Constitutional Appears: Well - Head Exam Head Exam: ATRAUMATIC, NORMAL INSPECTION, NORMOCEPHALIC - Eye Exam Eye Exam: EOMI, Normal appearance, PERRL Pupil Exam: NORMAL ACCOMODATION, PERRL - ENT Exam ENT Exam: Mucous Membranes Moist, Normal Exam - Neck Exam Neck exam: Positive for: Normal Inspection - Respiratory Exam Respiratory Exam: Decreased Breath Sounds, Prolonged Expiratory Phase, Wheezes, NORMAL BREATHING PATTERN - Cardiovascular Exam Cardiovascular Exam: REGULAR RHYTHM - GI/Abdominal Exam GI & Abdominal Exam: Normal Bowel Sounds, Soft. absent: Tenderness - Rectal Exam Rectal Exam: NORMAL INSPECTION - Exam Exam: Circumcision, NORMAL INSPECTION External exam: NORMAL EXTERNAL EXAM Speculum exam: NORMAL SPECULUM EXAM Bimanual exam: NORMAL BIMANUAL EXAM - Extremities Exam Extremities exam: Positive for: normal inspection - Back Exam Back exam: NORMAL INSPECTION - Neurological Exam Neurological exam: Alert, CN II-XII Intact, Normal Gait, Oriented x3, Reflexes Normal - Psychiatric Exam Psychiatric exam: Normal Affect, Normal Mood - Skin Skin Exam: Dry, Intact, Normal Color, Warm Results - Vital Signs Recent Vital Signs: Last Vital Signs Temp 97.1 F L 01/12/17 21:33 Pulse 86 01/13/17 11:50 Resp 24 01/13/17 11:50 BP 140/68 01/13/17 11:45 Pulse Ox 94 L 01/13/17 11:50 - Labs Result Diagrams: 01/13/17 05:00 01/13/17 04:45 Labs: Laboratory Results - last 24 hr 01/12/17 01/13/17 01/13/17 21:45 04:45 05:00 WBC 9.4 RBC 4.32 Hgb 12.9 L Hct 37.2 L MCV 86.1 MCH 29.9 MCHC 34.7 RDW 13.2 Plt Count 147 MPV 10.5 Gran % 68.0 Lymph % (Auto) 26.5 [place] % (Auto) 4.9 Eos % (Auto) 0.4 L Baso % (Auto) 0.2 Gran # 6.42 Lymph # 2.5 [place] # 0.5 Eos # 0.0 Baso # 0.02 PT INR APTT Sodium 139 Potassium 4.2 Chloride 110 H Carbon Dioxide 18 L Anion Gap 15 BUN 12 Creatinine 1.0 Est GFR ( Amer) > 60 Est GFR (Non-Af Amer) > 60 POC Glucose (mg/dL) 119 H Random Glucose 124 H Calcium 8.4 Total Bilirubin 1.5 H AST 31 ALT 58 H Alkaline Phosphatase 74 Lactate Dehydrogenase Total Creatine Kinase Troponin I Total Protein 6.4 Albumin 3.5 Globulin 2.9 Albumin/Globulin Ratio 1.2 01/13/17 01/13/17 05:00 05:00 WBC RBC Hgb Hct MCV MCH MCHC RDW Plt Count MPV Gran % Lymph % (Auto) [place] % (Auto) Eos % (Auto) Baso % (Auto) Gran # Lymph # [place] # Eos # Baso # PT 13.1 H INR 1.21 H APTT 46.7 H Sodium Potassium Chloride Carbon Dioxide Anion Gap BUN Creatinine Est GFR ( Amer) Est GFR (Non-Af Amer) POC Glucose (mg/dL) Random Glucose Calcium Total Bilirubin AST ALT Alkaline Phosphatase Lactate Dehydrogenase 711 H Total Creatine Kinase 107 Troponin I 0.37 H* Total Protein Albumin Globulin Albumin/Globulin Ratio Assessment & Plan - Assessment and Plan (Free Text) Assessment: - History of Present Illness History of Present Illness: 56 y/o M presented to the ER w/ SOB, chest heaviness and difficulty ambulating x 10 days. He explains that he has been feeling SOB but has been hoping the his symptoms would go away but they persisted and brought him to the ER for further evaluation. 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 No further risk factors were noted. In the ER he was found to be tachycardic, SOB and Chest CT was done which showed large B/L P.E. Plan: 56 y/o M w/ B/L large P.E risk factor at this point is non ambulatory state . Will need Hypercoaguable work up to r/o Protein C& S, factor 5 def, etc. RH , connective tissue work up Lovenox treatment dose given. ECHo and Lower ext Venous dupplex ordered IR consulted for possible ECOS catheter placement/ TPA catheter directed. ICU monitoring overnight. d/d with family dr hanna , er physician
[2017-01-13] MEDS ORDERED: Lidocaine 2% Inj (20ml) ONE (16:13)
[2017-01-13] MEDS ORDERED: Iodixanol 320 mg/ml 150 ml Bottle IV ONE (16:14)
[2017-01-13] MEDS ORDERED: Nitroglycerin 50mg in D5W 50 MG/250 ML BOTTLE IV ONE (16:14)
[2017-01-13] MEDS ORDERED: Iodixanol 320 MG/ML 200 ML BOTTLE IV ONE (16:14)
--- NOTE | 2017-01-13 17:08 | PN ---
PULMONARY CRITICAL CARE PROGRESS NOTE REFERRING PHYSICIAN: Dr. Enciso. DATE: 01/13/2017 SUBJECTIVE: He is lying in the bed in intensive care unit, receiving thrombolytic therapy through the EKOS system. He feels better. Chest pressure is better. Shortness of breath is better. No nausea. No vomiting. No diarrhea. No leg swelling. OBJECTIVE GENERAL: No acute distress. VITAL SIGNS: Temperature 98, heart rate 86, respiratory rate 22, blood pressure 140/68, pulse oximetry 74% on nasal canula. HEENT: Moist mucous membrane. Crowded airway. Mallampati score is IV. NECK: Short, thick neck. LUNGS: Fair airflow with few rhonchi. HEART: S1 and S2. ABDOMEN: Soft, nontender. No organomegaly. EXTREMITIES: No edema. NEUROLOGIC: Awake and alert. Follows simple commands. MEDICATIONS: He is on Ancef 1 g IV was given, Ativan 2 mg IV q. 6 hour p.r.n., Dilaudid 2 mg q. 6 hour p.r.n., insulin coverage, Percocet 5/325 mg 1 tab q. 6 hour p.r.n., Protonix 40 mg daily, Tylenol p.r.n. basis. He is getting TPA and heparin. LABORATORY DATA: Shows hemoglobin 12.9, hematocrit 37.2, WBC 9.2, platelets 147. INR 1.21, PTT is 47. Sodium 139, potassium 4.2, chloride 110, bicarbonate 18, BUN 12, creatinine 1.0, glucose 124, calcium is 8.4. Total bilirubin 1.5, AST 31, ALT 58, alkaline phosphatase 74. LDH is . Troponin 0.37, albumin 3.5. Cholesterol is 185, triglycerides 235. IMPRESSION AND PLAN: Bilateral pulmonary embolism with right heart strain with cardiac enzymes with high BNP, ended up with catheter-guided thrombolytic therapy, presently carrying continuous tissue plasminogen activator which is EKOS-guided catheter. Case discussed with the nursing staff. The patient doing well. TPA will discontinued this afternoon. Sleep apnea precaution. May use BiPAP if hypoxemia. Gastric prophylaxis. Follow up labs in the morning. Thank you, we will follow with you. Shara Diallo MD [facility] # [id number]
[2017-01-13] MEDS ORDERED: Midazolam 2 MG/2 ML VIAL ONE (17:16)
[2017-01-13] MEDS ORDERED: Heparin 25,000units in D5W 25,000 UNITS/250 ML BAG IV ONE (17:36)
--- NOTE | 2017-01-13 18:11 | VASCULAR ---
PROCEDURE: 1. Bilateral pulmonary artery angiogram with PA pressures. HISTORY: Massive PE with acute cor pulmonale. Bilateral pulmonary artery EKOS catheter-directed thrombolysis. PHYSICIAN(S): Stewart Neff M.D. TECHNIQUE: The patient was placed supine on the arteriogram table and the infusion systems from both groins prepped and draped usual sterile fashion. On should sedation monitoring were provided throughout the procedure by a nurse. The left groin catheter in the right pulmonary artery was removed. From the right groin a 0.035 Pablo wire was placed in the left lower pulmonary artery. The infusion catheter was removed. A 5 Vincentian pigtail catheter was placed in the main pulmonary artery at the bifurcation. PA pressures were obtained. Next a PA DSA bilateral pulmonary arteriogram was performed. The sheaths were removed and hemostasis obtained. The patient tolerated the procedure well. FINDINGS: The pulmonary artery pressures remained elevated but are improved when compared to the pre intervention pressures. Systollic pulmonary artery pressure is 50-75 mmHg. There has been significant interval lysis. Residual thrombus is seen in the left lower lobe and the right upper lobe. IMPRESSION: 1.Marked improvement in the appearance of the bilateral pulmonary emboli.
[2017-01-13] MEDS: ceFAZolin 1 gm in NS 1 GM/100 ML BAG IVPB SCH (20:32)
[2017-01-14] MEDS: Heparin 25,000units in D5W 25,000 UNITS/250 ML BAG IV PRN ×2 (01:20→10:03)
--- NOTE | 2017-01-14 03:01 | CP.PCM.PCO ---
Physician Communication Note - Physician Communication Note Physician Communication Note: ok to D/C maintenance IVF's as pt is eating
--- NOTE | 2017-01-14 03:02 | CP.PCM.PCO ---
Physician Communication Note - Physician Communication Note Physician Communication Note: Given peristently normal vitals, will place order for transfer to telemetry
[2017-01-14 07:03] LABS: BASO # 0.02 K/mm3 (0.0-2.0); BASO % 0.3 % (0.0-3.0); EOS # 0.3 (0.0-0.7); EOS % 3.6 % (1.5-5.0); GRAN # 3.65 (1.4-6.5); GRAN % 47.4 % (50.0-68.0); HEMOGLOBIN 11.1 gm/dL (14.0-18.0); LYMPH # 3.5 (1.2-3.4); LYMPH % 44.8 % (22.0-35.0); MEAN CELL VOLUME 86.1 fL (80.0-105.0); MEAN CORPUSCULAR HEMOGLOBIN 29.7 pg (25.0-35.0); MEAN CORPUSCULAR HGB CONC 34.5 g/dl (31.0-37.0); MEAN PLATELET VOLUME 10.1 fl (7.0-11.0); MONO # 0.3 (0.1-0.6); MONO % 3.9 % (1.0-6.0); PLATELET COUNT 147 10^3/uL (120.0-450.0); RBC 3.74 10^6/uL (3.5-6.1); RED CELL DISTRIBUTION WIDTH 13.3 % (11.5-14.5); WHITE BLOOD COUNT 7.7 10^3/ul (4.5-11.0)
[2017-01-14 07:34] LABS: ALB/GLOB RATIO 1.1 (1.1-1.8); ALT/SGPT 46 U/L (7-56); AST/SGOT 32 U/L (15-59); BLOOD UREA NITROGEN 10 mg/dL (7-21); CALCIUM 8.3 mg/dL (8.4-10.5); GFR AFRICAN-AMERICAN > 60; GFR NON-AFRICAN AMERICAN > 60
[2017-01-14 08:03] LABS: TROPONIN I 0.19 ng/mL
[2017-01-14 08:18] LABS: INR 1.19 (0.93-1.08); PROTHROMBIN TIME 12.8 Seconds (9.9-11.8)
[2017-01-14 08:34] LABS: PARTIAL THROMBOPLASTIN TIME 113.3 Seconds (23.7-30.8)
[2017-01-14] MEDS: Insulin Reg-LOW-Coverage SC SCH ×4 (09:05→21:19)
--- NOTE | 2017-01-14 13:32 | US ---
HISTORY: Leg pain and swelling. Evaluate for DVT PHYSICIAN(S): Stewart Neff MD. TECHNIQUE: Duplex sonography and color-flow Doppler with graded compression were used to evaluate the deep venous systems of both lower extremities. FINDINGS: The visualized deep venous systems of both lower extremities are sonographically normal and compressible. Normal wave forms and augmentation are seen. There is no sonographic evidence for deep venous thrombosis in the visualized segments of both lower extremities. IMPRESSION: No sonographic evidence for deep venous thrombosis in the visualized segments of both lower extremities.
--- NOTE | 2017-01-14 13:35 | PN ---
DATE: 01/14/2017. REASON FOR CONSULTATION: Followup cardiac evaluation, positive troponin, massive PE, status post thrombolysis with EKOS catheter. BRIEF CLINICAL HISTORY: This is a 56-year-old patient lying flat, denies chest pain, shortness of breath or any palpitations. PHYSICAL EXAMINATION GENERAL: Lying flat, possible transfer to [facility] this morning. VITAL SIGNS: As follows. Temperature afebrile, heart rate 83, blood pressure 110/73. HEENT: PERRLA. Extraocular muscles are intact. NECK: Supple. No carotid bruit, no thyromegaly. CHEST: Clear to auscultation. HEART: S1 and S2 regular. ABDOMEN: Soft. EXTREMITIES: Clubbing and cyanosis negative. LABORATORY DATA: Blood workup as follows. WBC 7.7, hemoglobin 11.8, hematocrit 32.2, and platelet count of 147. Chemistries shows sodium 134, potassium 4, chloride 107, carbon dioxide 21, anion gap of 13, BUN 10, creatinine 1.0, troponin 0.19, total protein 5.7, albumin 3, albumin-globulin ratio 1.1. 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 Denies any chest pain, shortness of breath, or any palpitation now. Most likely his positive troponin is secondary to right ventricular strain because CAT scan revealed right ventricular strain as well. RECOMMENDATION: Continue heparin and IV Coumadin start today. We will get echo to assess LV function. For risk stratification, patient needs stress patient as outpatient. Lipid profile shows triglycerides 238, cholesterol 185, LDL 138, HDL 25. We will start anti-lipid agent. Also needs aggressive control of glucose also; hemoglobin A1c is 7.9 that shows a very poorly controlled diabetes. We will get TSH level. We will follow with you. We will also start metformin from today and statin as well. In terms of weight reduction, modification of lifestyle and also risk stratification stress test in three months as outpatient discussed with the patient. Also dietary modification and low cholesterol diet as eat more fish and chicken and avoid fried food. Thank you Dr. Enciso for providing me the opportunity in taking care of patient, Jim Galindo. Shara Holt MD [facility] # [id number]
--- NOTE | 2017-01-14 14:39 | PN ---
DATE: 01/13/2017 SUBJECTIVE: The patient was seen and examined on 01/13/2017. In the evening, son, daughter and was at bedside in the ICU, lying down comfortably, feeling better and no nausea, no vomiting and diarrhea. No headache, no dizziness. Length of time discussion done with Dr. Stewart Neff. The patient was receiving thrombolytic therapy through the EKOS system and according Dr. Stewart Neff, he will stop that system on 01/13/2017. PHYSICAL EXAMINATION: HEENT: Head is normocephalic and atraumatic. Eyes; PERRLA. Extraocular muscles are intact. Conjunctivae clear. Nose patent. Mucous membranes moist. NECK: Supple. No carotid bruits or thyromegaly. CHEST: Bilaterally symmetrical. HEART: S1 and S2 positive. LUNGS: Clear to auscultation. ABDOMEN: Soft. Bowel sounds present. No organomegaly. EXTREMITIES: No edema. No cyanosis. NEUROLOGIC: The patient is awake and alert. Moving all four extremities. No focal deficit. MEDICATIONS: Ancef, Ativan, Dilaudid, insulin, Percocet, Protonix, Tylenol, got TPA and heparin. LABORATORY DATA: Hemoglobin 12.9, hematocrit 37.2, WBC 9.2, platelets 147. Sodium 139, potassium 4.2, BUN 12, creatinine 1.0. AST 31, ALT 58. ASSESSMENT AND PLAN: The patient is 56-year-old male with bilateral pulmonary embolism with right heart strain with cardiac enzymes with high BNP, ended up with catheter-guided thrombolytic therapy, he is presently carrying continuous tissue plasminogen activator which is EKOS-guided catheter done by Dr. Stewart Neff. Length of time discussion done with family about further prevention. The patient has filter and according to Dr. Stewart Neff, this should be removed after 3 months. TPA was discontinued in the afternoon. Sleep apnea percussions. Obesity, ordered to lose weight. We will put the patient on tight control for hyperglycemia and hypertriglyceridemia. We will follow up. Gloria Enciso MD
--- NOTE | 2017-01-14 15:33 | CARD ---
APPROVED REPORT EXAM: Two-dimensional and M-mode echocardiogram with Doppler and color Doppler. INDICATION Pulmonary Embolism 2D DIMENSIONS Left Atrium (2D)3.7 (1.6-4.0cm)IVSd0.9 (0.7-1.1cm) LVDd4.3 (3.9-5.9cm)PWd0.9 (0.7-1.1cm) LVDs2.6 (2.5-4.0cm)FS (%) 38.0 % LVEF (%)68.5 (>50%) M-Mode DIMENSIONS Aortic Root3.80 (2.2-3.7cm)Aortic Cusp Exc.2.00 (1.5-2.0cm) Aortic Valve AoV Peak Lhblloud120.0cm/[place] GR.6mmHg Mitral Valve MV E Oynyvhdc68.7cm/sMV A Impnbhos64.9cm/sE/A ratio1.1 TDI Lateral E' Peak V12.70cm/sMedial E' Peak V7.70cm/sE/Lateral E'7.8 E/Medial E'12.8 Pulmonary Valve PV Peak Istfgexf11.3cm/sPV Peak Grad.1mmHg Tricuspid Valve TR Peak Hlsnbtkm752lz/sRAP FHRIGBMD84jrMoJX Peak Gr.36mmHg [id number] LEFT VENTRICLE The left ventricle is normal size. There is normal left ventricular wall thickness. The left ventricular function is normal.EF-65 mmofHg There is normal LV segmental wall motion. Transmitral Doppler flow pattern is Grade III-reversible restrictive diastolic dysfunction. No left ventricle thrombus noted on this study. There is no ventricular septal defect visualized. There is no left ventricular aneurysm. There is no mass noted in the left ventricle. RIGHT VENTRICLE The right ventricle is moderately dilated. There is normal right ventricular wall thickness. Systolic function of RV is moderately to severely reduced. ATRIA The left atrium size is normal. The right atrium is mildly dilated. The interatrial septum is intact with no evidence for an atrial septal defect. AORTIC VALVE The aortic valve is normal in structure. There is trace to mild aortic regurgitation. There is no aortic valvular stenosis. There is no aortic valvular vegetation. MITRAL VALVE The mitral valve is normal in structure. There is no mitral valve regurgitation noted. There is no mitral valve stenosis. There is no evidence of mitral valve prolapse. TRICUSPID VALVE The tricuspid valve leaflets are thickened , but open well. There is mild tricuspid regurgitation.RVSP-46 mmof hg. There is no tricuspid valve stenosis. There is no tricuspid valve prolapse or vegetation. PULMONIC VALVE The pulmonary valve is normal in structure. There is tracetrace pulmonic valvular regurgitation. There is no pulmonic valvular stenosis. GREAT VESSELS The aortic root is normal in size. The ascending aorta is normal in size. The pulmonary artery is normal. The IVC is normal in size and collapses >50% with inspiration. PERICARDIAL EFFUSION There is no pleural effusion. There is a trace pericardial effusion. <Conclusion> The left ventricle is normal size. There is normal left ventricular wall thickness. The left ventricular function is normal.EF-65 mmofHg The right ventricle is moderately dilated. Systolic function of RV is moderately to severely reduced. There is trace to mild aortic regurgitation. There is mild tricuspid regurgitation.RVSP-46 mmof hg. Recent Hx of B/l PE S/p thrombolysis.
[2017-01-14] MEDS: ceFAZolin 1 gm in NS 1 GM/100 ML BAG IVPB SCH (18:16)
--- NOTE | 2017-01-15 00:48 | PN ---
DATE: 01/14/2017 REFERRING PHYSICIAN: Dr. Enciso. SUBJECTIVE: He is a middle aged male, feels much better. No headache, no rhinitis. No cough, no shortness of breath. No nausea or vomiting. No leg pain or leg swelling. PHYSICAL EXAMINATION VITAL SIGNS: Temperature 98, heart rate 82, respiratory rate is 18, blood pressure 122/74, pulse oximetry 96% on nasal canula. HEENT: Moist mucous membranes. Crowded airway. Mallampati score is 4. NECK: Supple. No JVD. CARDIOPULMONARY: S1 and S2. LUNGS: Fair airflow with few rhonchi. ABDOMEN: Soft and nontender. No organomegaly.. EXTREMITIES: No edema. NEUROLOGIC: Awake and alert. Follows simple commands. MEDICATIONS: He is on Ancef 1 g IV daily, also on Ativan 2 mg IV q. 6 hours p.r.n., Coumadin 10 mg given tonight, Dilaudid 2 mg IV q. 6 hours p.r.n., metformin 500 mg twice a day, IV heparin, insulin coverage, Lipitor 20 mg daily, Percocet 5/325 mg 1 tab q. 6 hours p.r.n., Protonix 40 mg daily, and Tylenol on a p.r.n. basis. LABORATORY DATA: Shows hemoglobin 11.1, hematocrit 32.2, WBC 7.7 and platelet is 147. PTT is 68. Sodium 137, potassium 4.0, chloride 107, bicarbonate 21, BUN 10, creatinine 1.0, glucose 101, calcium 8.3, AST 32, ALT 46 and alkaline phosphatase 65. Troponin is 0.19. Albumin 3.0. Echocardiogram done today shows the right ventricular systolic pressure of 46, right ventricle moderately dilated, systolic function of right ventricle is severely reduced. IMPRESSION AND PLAN: Bilateral pulmonary embolism requiring thrombolytic therapy, may have a sleep apnea syndrome, pulmonary hypertension, right heart failure. Agree with the present management. Continue with heparin, Coumadin. Discontinue heparin when INR above 2. Keep head elevated at 45 degrees. We are going to recommend attended sleep study upon discharge as an outpatient. Deep venous thrombosis precautions. Need to retrieve inferior vena cava filter in a couple weeks once stable. Thank you. We will follow with you. Shara Diallo MD [facility] # [id number]
[2017-01-15] MEDS: Heparin 25,000units in D5W 25,000 UNITS/250 ML BAG IV PRN ×2 (01:39→08:44)
[2017-01-15] MEDS: Albuterol-Ipratrop 3 mg / 0.5 (3 ml) UD IH SCH ×5 (02:20→23:37)
--- NOTE | 2017-01-15 02:58 | PN ---
DATE: 01/14/2017 SUBJECTIVE: The patient last seen and examined on 01/15/2016, looks comfortable. According to him, he has different episodes of coughing. Family, daughter, and were on the bedside. No nausea, vomiting, diarrhea. No hematuria and no hematochezia. No swelling of the leg. No chest pain. No palpitation. No headaches or dizziness. PHYSICAL EXAMINATION: VITAL SIGNS: Temperature 98.2, pulse 91, blood pressure 122/74, respiratory 18. HEENT: Head is normocephalic and atraumatic. Eyes; PERRLA. Extraocular movements intact. Conjunctivae are clear. Nose is patent. NECK: Supple. No carotid bruit and no thyromegaly. CHEST: Bilaterally symmetrical. HEART: S1 and S2 positive. LUNGS: Clear to auscultation. ABDOMEN: Soft. Bowel sounds are present. No organomegaly. EXTREMITIES: No edema and no cyanosis. NEUROLOGIC: The patient is awake and alert. Moving all four extremities. No focal deficits. MEDICATIONS: Aricept, Ativan, Coumadin, Dilaudid, Glucophage, Heparin, insulin, Lipitor, Tylenol. LABORATORY DATA: White blood cells of 7.7, hemoglobin of 11.1, hematocrit of 32.2, and platelets of 147. Sodium of 137, potassium of 4.0, BUN of 10, and creatinine of 1.0. Glucose is 101, 107, 147, 120. Troponin is 0.19. ASSESSMENT AND PLAN: Mr. Josie Fernandez is a 56-year-old male with anemia, diabetes mellitus, hypocalcemia, obesity, hypercholesterolemia, hypertriglyceridemia noncompliant, has bilateral pulmonary emboli with right heart strain with cardiac enzymes and with high BNP, ended up with catheter-guided thrombolytic therapy, with continuous tissue plasminogen activator which is EKOS-guided catheter. Patient did well with TPA. Need BiPAP as per Dr. Diallo. Gastrointestinal and deep venous thrombosis prophylaxis. Seen by gym manager Dr. Holt. Obesity, patient getting heparin IV. patient needs stress test as an outpatient and management for triglyceride, triglyceride is 238, cholesterol 185. Dr. Holt started anti-lipid agent. We will follow. Gloria Enciso MD [facility] # [id number] MTDD
[2017-01-15 07:07] LABS: BASO # 0.01 K/mm3 (0.0-2.0); BASO % 0.2 % (0.0-3.0); EOS # 0.2 (0.0-0.7); EOS % 2.4 % (1.5-5.0); GRAN # 3.74 (1.4-6.5); GRAN % 60.9 % (50.0-68.0); HEMOGLOBIN 11.4 gm/dL (14.0-18.0); LYMPH % 32.1 % (22.0-35.0); MEAN CELL VOLUME 86.6 fL (80.0-105.0); MEAN CORPUSCULAR HEMOGLOBIN 29.9 pg (25.0-35.0); MEAN CORPUSCULAR HGB CONC 34.5 g/dl (31.0-37.0); MEAN PLATELET VOLUME 9.9 fl (7.0-11.0); MONO # 0.3 (0.1-0.6); MONO % 4.4 % (1.0-6.0); PLATELET COUNT 173 10^3/uL (120.0-450.0); RBC 3.81 10^6/uL (3.5-6.1); RED CELL DISTRIBUTION WIDTH 13.6 % (11.5-14.5); WHITE BLOOD COUNT 6.1 10^3/ul (4.5-11.0)
[2017-01-15 07:30] LABS: ALBUMIN 3.5 g/dL (3.0-4.8); ALT/SGPT 57 U/L (7-56); GFR AFRICAN-AMERICAN > 60; GFR NON-AFRICAN AMERICAN > 60
[2017-01-15 07:36] LABS: INR 1.25 (0.93-1.08); PROTHROMBIN TIME 13.5 Seconds (9.9-11.8)
[2017-01-15 07:37] LABS: TROPONIN I 0.07 ng/mL
[2017-01-15 07:38] LABS: PARTIAL THROMBOPLASTIN TIME 86.1 Seconds (23.7-30.8)
[2017-01-15] MEDS: Budesonide 0.5 mg/2 ml Inhal Susp UD IH SCH ×2 (07:40→19:31)
[2017-01-15] MEDS: Arformoterol 15 mcg/2 ml Inh Sol IH SCH ×2 (07:44→19:31)
[2017-01-15 08:07] LABS: ALB/GLOB RATIO 1.3 (1.1-1.8); AST/SGOT 37 U/L (15-59); BLOOD UREA NITROGEN 12 mg/dL (7-21); CALCIUM 9.1 mg/dL (8.4-10.5)
[2017-01-15] MEDS: Insulin Reg-LOW-Coverage SC SCH ×3 (08:30→17:42)
--- NOTE | 2017-01-15 13:25 | PN ---
DATE: 01/15/2017 REASON FOR CONSULTATION: Followup cardiac evaluation, positive troponin, bilateral PE, status post thrombolysis with EKOS catheter and IVC filter. SUBJECTIVE: The patient denies any chest pain, shortness of breath, or any palpitations. PHYSICAL EXAMINATION: GENERAL: Lying flat in the bed, not in apparent distress. VITAL SIGNS: Temperature afebrile, heart rate 80, and blood pressure 108/63. HEENT: PERRLA. Extraocular muscles are intact. NECK: Supple. No carotid bruits or thyromegaly. HEART: S1 and S2 regular. CHEST: Clear to auscultation. ABDOMEN: Soft. EXTREMITIES: Clubbing and cyanosis negative. Bilateral groin looks okay, already dressing removed. LABORATORY DATA: Blood workup as follows: WBC 6.8, hemoglobin , hematocrit 33.0, and platelet count 173. Chemistry shows sodium 136, potassium 4.4, chloride 105, bicarbonate 24, anion gap of 11, BUN 12, and creatinine 1.0. Random sugar 126. Hemoglobin A1c 7.9. Total triglyceride 235, cholesterol 185, LDL 138, and HDL 24. BNP on is 2220, maximum troponin is 0.42. 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 RECOMMENDATIONS: Resume Coumadin, when it is appropriate in this patient possibly held by other physician for possible another procedure intervention. Suggested to restart Coumadin versus Novel anticoagulation as appropriate as per Dr. Enciso. For the interim, continue atorvastatin, continue heparin, out of bed to chair, and in terms of weight reduction, modification lifestyle and modified risk factor for coronary artery disease, also suggest for risk stratification after 3 months stress test discussed with the patient. We will follow with you. We will also cancel PT daily because Coumadin was held by Dr. Morales when the Coumadin restarted, we will reorder PT daily or Novel anticoagulation started, then does not need to be followed up PT/INR. Also suggest aggressive control of diabetes because of a very poorly controlled weight reduction as well because hemoglobin A1c is 7.9 that suggest very poorly controlled. We will put out of bed to chair. Thank you Dr. Enciso for providing me the opportunity in taking care of patient, Josie. Shara Holt MD
--- NOTE | 2017-01-15 16:24 | PN ---
DATE: 01/15/2017 REFERRING PHYSICIAN: Dr. Enciso. SUBJECTIVE: He is out of bed to chair; night was unremarkable. No headache, no rhinitis. No nausea, vomiting or diarrhea. No leg pain or leg swelling. OBJECTIVE: VITAL SIGNS: Temperature 98, heart rate 80, respiratory rate is 20, blood pressure 108/63, pulse oximetry 96% on room air. HEENT: Moist mucous membranes. Crowded airway. Mallampati score is 4. NECK: Supple. No JVD. LUNGS: Fair airflow with rhonchi. HEART: S1 and S2. ABDOMEN: Soft and nontender. No organomegaly. EXTREMITIES: No edema. NEUROLOGIC: Awake and alert. Follows simple commands. MEDICATIONS: He is on Ancef 1 g daily, also on Brovana 15 mcg inhale twice day, DuoNeb q. 6 hours, Eliquis restarted 5 mg daily, metformin 500 mg twice a day, insulin coverage, Lipitor 20 mg daily, Percocet 5/325 mg 1 tab q. 4 hours p.r.n., Protonix 40 mg daily, Pulmicort inhale twice a day, TriCor 145 mg daily, and Tylenol p.r.n. basis. LABORATORY DATA: Shows hemoglobin 11.4, hematocrit 33.0, WBC 6.1 and platelet is 173. PTT is 86. Sodium 136, potassium 4.4, chloride 105, bicarbonate 24, BUN 12, creatinine 1.0, glucose 123, calcium 9.1, phosphorus 4.0. AST 37, ALT 57 and alkaline phosphatase 70. LDH . Troponin is 0.07. Albumin 3.5. TSH 3.14. IMPRESSION AND PLAN: Bilateral pulmonary embolism requiring thrombolytic therapy, may have a sleep apnea syndrome, pulmonary hypertension, right heart failure. Case discussed with Dr. Enciso. I agree with the plan discontinuing heparin; after one hour, start Eliquis 5 mg twice a day. If tolerates may do discontinue planning. Outpatient recommended sleep study. He need anticoagulation at least about 6 months or so and should be followed up. Thank you and we will follow with you. Shara Diallo MD
--- NOTE | 2017-01-15 19:27 | VASCULAR ---
PROCEDURE: 1. IVC filter placement 2. Bilateral pulmonary artery catheter -directed tPA infusion HISTORY: Massive pulmonary emboli with acute cor pulmonale. Needs thrombolysis and filter placement. PHYSICIAN(S): Stewart Neff M.D. TECHNIQUE: The relative risks and indications of the procedure were explained by a compressed air pile driver operator service to the patient's family and consent obtained. The patient was hydrated prior to the procedure and the appropriate labs drawn. The patient was placed supine on the arteriogram table and the right groin prepped and draped in the usual sterile fashion. Conscious sedation and monitoring were provided throughout the procedure by a nurse. The right common femoral vein was punctured and a 5 Welsh sheath placed. A 5 Welsh flush catheter was placed the left iliac venous system and a PA DSA IVC gram performed. The renal veins were marked. The guidewire was advanced to the right atrium. 6.5 Welsh sheath was placed at the level of renal veins. A retrievable filter was deployed at the level of renal veins. A 7 Welsh sheath was placed the right groin. A guidewire was passed through the filter. Catheter was used to direct the guidewire through the right heart and into the left pulmonary artery. PA pressures were obtained. A support wire was placed and next 5 Welsh equals catheter with 18 cm infusion length was placed in the left lower pulmonary artery cross the visualized embolus. Next the left groin was prepped and draped usual sterile fashion. 1 percent xylocaine was used to anesthetize skin soft tissues. The left common femoral vein was punctured and a 6 Welsh sheath placed. Once again a guidewire was advanced across the filter and through the right heart. The guidewire was placed in the right lower lobe pulmonary artery. A a right pulmonary care gram was performed. A support wire was placed and subsequently a 5 Welsh because catheter with a 12 cm infusion length placed in the right pulmonary artery extending into the lower lobe. TPA was initiated 1 milligram/hour. Sub therapeutic heparin was given through the sheath. The patient was transferred to the ICU. FINDINGS: There is a massive Samir involving the upper and lower lobes on the right. A large pulmonary embolus involving the lingula and left lower lobe was also seen. The PA pressures are markedly elevated) sees approximately 80/20 mm Hg. IMPRESSION: 1.Massive bilateral pulmonary emboli with markedly elevated PA pressures ( 80/20 mmHg) 2. IVC filter placement 3. Successful bilateral EKOS catheter-directed tPA infusion catheters placed in the pulmonary arteries.
--- NOTE | 2017-01-15 19:46 | PN ---
SUBJECTIVE: The patient is seen and examined early in the morning, sitting on the chair, feeling better. No nausea, vomiting or diarrhea. No swelling of the leg and no chest pain, no headache, no dizziness. Tolerating food very well. He is going to the bathroom by himself. PHYSICAL EXAMINATION: VITAL SIGNS: Temperature 96, heart rate 80, respiratory rate 20, blood pressure 108/63, pulse oximetry 93% on room air. HEENT: Head is normocephalic and atraumatic. Eyes; PERRLA. Extraocular movements intact. Conjunctivae are clear. Nose is patent. Mucosa membrane moist. NECK: Supple. No carotid bruit or thyromegaly. CHEST: Bilaterally symmetrical. HEART: S1 and S2 positive. LUNGS: Fair airflow with few rhonchi. ABDOMEN: Soft. No organomegaly. EXTREMITIES: No edema and no cyanosis. NEUROLOGIC: The patient is awake and alert. Moving all four extremities. No focal deficits. MEDICATIONS: Ancef, Brovana, DuoNeb, Eliquis 5 mg started today, metformin, insulin coverage, Lipitor, Percocet, Protonix, Pulmicort, Tricor, Tylenol. LABORATORY DATA: Hemoglobin of 11.4, hematocrit of 33.0, white blood cells 6.1, and platelets of 173. Sodium of 133, potassium of 4.4, BUN of 12, and creatinine of 1.0. Glucose is 123. AST 37, ALT 57, troponin is 0.07, albumin 3.5. TSH 2.14. ASSESSMENT AND PLAN: The patient with bilateral pulmonary emboli requiring thrombolytic therapy, has sleep apnea syndrome, hypertriglyceridemia, obesity, hypercalcemia, pulmonary hypertension, no right heart failure, was on heparin, started Eliquis after discussing with Dr. Diallo. Spoke to nurse practitioner Cheli, she will call pharmacy to make sure that his insurance will cover Eliquis. If insurance will cover them, we will discharge the patient with Eliquis. GI and DVT prophylaxis. Length of time discussion done with Dr. Diallo. The patient need at least 6 months off anticoagulation as per therapy coordinator. We will follow up. Gloria Enciso MD
[2017-01-15] MEDS: ceFAZolin 1 gm in NS 1 GM/100 ML BAG IVPB SCH (20:02)
[2017-01-16] MEDS: Albuterol-Ipratrop 3 mg / 0.5 (3 ml) UD IH SCH ×3 (01:21→13:28)
[2017-01-16] MEDS: ceFAZolin 1 gm in NS 1 GM/100 ML BAG IVPB SCH (04:12)
[2017-01-16 06:33] VITALS: RESP 18
[2017-01-16] MEDS: Budesonide 0.5 mg/2 ml Inhal Susp UD IH SCH (07:38)
[2017-01-16] MEDS: Arformoterol 15 mcg/2 ml Inh Sol IH SCH (07:38)
[2017-01-16 07:44] LABS: BASO # 0.01 K/mm3 (0.0-2.0); BASO % 0.2 % (0.0-3.0); EOS # 0.2 (0.0-0.7); EOS % 4.2 % (1.5-5.0); GRAN # 2.63 (1.4-6.5); GRAN % 46.5 % (50.0-68.0); HEMOGLOBIN 10.6 gm/dL (14.0-18.0); LYMPH # 2.5 (1.2-3.4); LYMPH % 43.6 % (22.0-35.0); MEAN CELL VOLUME 87.5 fL (80.0-105.0); MEAN CORPUSCULAR HEMOGLOBIN 29.5 pg (25.0-35.0); MEAN CORPUSCULAR HGB CONC 33.8 g/dl (31.0-37.0); MEAN PLATELET VOLUME 9.6 fl (7.0-11.0); MONO # 0.3 (0.1-0.6); MONO % 5.5 % (1.0-6.0); PLATELET COUNT 179 10^3/uL (120.0-450.0); RBC 3.59 10^6/uL (3.5-6.1); RED CELL DISTRIBUTION WIDTH 13.9 % (11.5-14.5); WHITE BLOOD COUNT 5.7 10^3/ul (4.5-11.0)
[2017-01-16 07:53] LABS: INR 1.56 (0.93-1.08); PARTIAL THROMBOPLASTIN TIME 31.2 Seconds (23.7-30.8); PROTHROMBIN TIME 16.8 Seconds (9.9-11.8)
[2017-01-16 08:09] LABS: ALB/GLOB RATIO 1.2 (1.1-1.8); ALBUMIN 3.4 g/dL (3.0-4.8); ALT/SGPT 58 U/L (7-56); AST/SGOT 44 U/L (15-59); BLOOD UREA NITROGEN 10 mg/dL (7-21); CALCIUM 8.8 mg/dL (8.4-10.5); GFR AFRICAN-AMERICAN > 60; GFR NON-AFRICAN AMERICAN > 60
[2017-01-16] MEDS: Insulin Reg-LOW-Coverage SC SCH ×3 (09:27→16:25)
[2017-01-16 11:56] VITALS: BP 126/68; TEMP 98.3
[2017-01-16 14:51] VITALS: PULSE 84; O2SAT 97
--- NOTE | 2017-01-16 21:20 | PN ---
DATE: 01/16/2017 PULMONARY PROGRESS NOTE REFERRING PHYSICIAN: Dr. Enciso. SUBJECTIVE: He is lying and bed resting well. No headache. No rhinitis. No cough, no shortness of breath. No nausea, vomiting, or diarrhea. No leg pain or no leg swelling. OBJECTIVE: GENERAL: No acute distress. VITAL SIGNS: Temperature is 98, heart rate is 82, respiratory rate is 18, blood pressure 126/ , pulse ox 97% on room air. HEENT: Moist mucous membranes. Crowded airway. NECK: Supple. No JVD. LUNGS: Fair airflow with few rhonchi. HEART: S1 and S2. ABDOMEN: Soft, nontender. No organomegaly. EXTREMITIES: No edema. NEUROLOGIC: Awake and alert. Follows simple commands. LABORATORY DATA: Shows hemoglobin 10.6, hematocrit 31.4, WBC 5.7, platelet is 179. INR 1.56, PTT is 31. Sodium 139, potassium 3.8, chloride 106, bicarbonate 24, BUN 10, creatinine 1.0, and glucose 105, calcium 8.8. AST 44, ALT 58, alkaline phosphatase is 53, albumin 3.4. MEDICATIONS: He is on Ancef, which should be discontinued; Brovana 50 mcg inhaled twice a day; DuoNeb q.6 hours; Eliquis 5 mg twice a day; metformin 500 mg twice a day; Lipitor 20 mg daily; Protonix 40 mg daily; Pulmicort inhaled twice a day; TriCor 145 mg daily; and Tylenol on a p.r.n. basis. IMPRESSION AND PLAN: Bilateral pulmonary embolism requiring thrombolytic therapy, been on heparin, which we will discontinue and switch to Eliquis 5 mg twice a day. Pulmonary point of view, doing okay. We will suggest outpatient attended sleep study. Case discussed with Dr. Enciso, needs anticoagulation at least for six months or so, if he tolerates well. Fall precaution, bleeding precaution. The patient expressed understanding of the pulmonary embolism and risk of bleeding. Shara Diallo MD
[2017-01-16 22:47] LABS: CARDIOLIPIN AB (IGA) <11 APL (<=11); CARDIOLIPIN AB (IGG) <14 GPL (<=14)
[2017-01-17 04:58] LABS: B2 GLYCOPROTEIN I AB(IGA) <9 SAU (<=20); B2 GLYCOPROTEIN I AB(IGG) <9 SGU (<=20); B2 GLYCOPROTEIN I AB(IGM) <9 SMU (<=20)
[2017-01-18 04:02] LABS: CARDIOLIPIN AB (IGM) <12 MPL (<=12); PHOSPHATIDYLSERINE AB IGA <20 U/mL (<20); PHOSPHATIDYLSERINE AB IGG <10 U/mL (<10); PHOSPHATIDYLSERINE AB IGM <25 U/mL (<25)
== END 2017-01-16 18:10 | disposition home or self-care (01) | DRG 539 ==
LOC: ED 10:19 → SDSVAS 16:51 → CCU 19:08 → 2RSO 01-14 07:35
PROVIDERS: ADMIT Internal Medicine; ATTEND Internal Medicine
PROC: 06H03DZ Insertion of Intraluminal Device into Inferior Vena Cava, Percutaneous Approach (ICD-10-PCS; principal; 2017-01-12)
PROC: 3E05317 Introduction of Other Thrombolytic into Peripheral Artery, Percutaneous Approach (ICD-10-PCS; 2017-01-12)
DX: I26.09 Other pulmonary embolism with acute cor pulmonale (principal); I27.2 Other secondary pulmonary hypertension; E11.65 Type 2 diabetes mellitus with hyperglycemia; G47.30 Sleep apnea, unspecified; E78.00 Pure hypercholesterolemia, unspecified; E78.1 Pure hyperglyceridemia; E83.51 Hypocalcemia; E66.9 Obesity, unspecified; Z68.35 Body mass index [BMI] 35.0-35.9, adult; D64.9 Anemia, unspecified; I10 Essential (primary) hypertension; Z79.899 Other long term (current) drug therapy; Z91.19 Patient's noncompliance with other medical treatment and regimen; R40.2412 Glasgow coma scale score 13-15, at arrival to emergency department; R00.0 Tachycardia, unspecified; I51.89 Other ill-defined heart diseases

== ENCOUNTER 2017-01-22 13:12 | Emergency (ER) | payer OTHER ==
[2017-01-22 13:12] VITALS: BMI 35.4
[2017-01-22 13:17] VITALS: BP 116/75; PULSE 80; RESP 16; TEMP 98.6; O2SAT 97
--- NOTE | 2017-01-22 14:00 | ED PDOC ---
Arrival/HPI - General Historian: Patient, Spouse - History of Present Illness Time/Duration: Other (2 days) Context: Home <Tania Moon - Last Filed: 01/22/17 13:57> <Jamie Almeida - Last Filed: 01/22/17 14:11> - General Chief Complaint: Hip Pain Time Seen by Provider: 01/22/17 13:31 - History of Present Illness Narrative History of Present Illness (Text): 01/22/17 13:30 This 56 yo male with pmh pe, presents to this ED c/o b/l buttocks pain x 2 days. (Tania Moon) Past Medical History - Provider Review Nursing Documentation Reviewed: Yes - Cardiac Hx Cardiac Disorders: Yes Hx Hypertension: Yes - Pulmonary Hx Respiratory Disorders: Yes Hx Pulmonary Embolism: Yes - Neurological Hx Neurological Disorder: No - HEENT Hx HEENT Disorder: No - Renal Hx Renal Disorder: No - Endocrine/Metabolic Hx Endocrine Disorders: Yes Hx Diabetes Mellitus Type 2: Yes - Hematological/Oncological Hx Blood Disorders: No - Integumentary Hx Dermatological Disorder: No - Musculoskeletal/Rheumatological Hx Musculoskeletal Disorders: No Hx Falls: No - Gastrointestinal Hx Gastrointestinal Disorders: No - Genitourinary/Gynecological Hx Genitourinary Disorders: No - Psychiatric Hx Psychophysiologic Disorder: No Hx Substance Use: No <Tania Moon - Last Filed: 01/22/17 13:57> Family/Social History - Physician Review Nursing Documentation Reviewed: Yes Family/Social History: No Known Family HX Smoking Status: Never Smoked Hx Alcohol Use: No Hx Substance Use: No <Tania Moon - Last Filed: 01/22/17 13:57> Allergies/Home Meds <Tania Moon - Last Filed: 01/22/17 13:57> <Jamie Almeida - Last Filed: 01/22/17 14:11> Allergies/Adverse Reactions: Allergies No Known Allergies Allergy (Verified 01/12/17 10:30) Home Medications: Home Meds Medication Instructions Recorded Confirmed Albuterol HFA [Ventolin HFA 90 2 puff IH PRN PRN 01/22/17 01/22/17 mcg/actuation (8 g)] Apixaban [Eliquis] 5 mg PO BID 01/22/17 01/22/17 Atorvastatin [Lipitor] 20 mg PO DAILY 01/22/17 01/22/17 metFORMIN [glucOPHAGE] 500 mg PO BID 01/22/17 01/22/17 Review of Systems - Review of Systems Constitutional: Normal. absent: Fatigue, Weight Change, Fevers Eyes: Normal ENT: Normal Respiratory: Normal. absent: SOB, Cough Cardiovascular: Normal. absent: Chest Pain, Palpitations Gastrointestinal: Constipation Genitourinary Male: Normal. absent: Dysuria, Frequency, Hematuria Musculoskeletal: Normal. absent: Back Pain Skin: Normal. absent: Rash Neurological: Normal. absent: Headache, Dizziness Endocrine: Normal Hemo/Lymphatic: Normal Psychiatric: Normal <Moon,Nah P - Last Filed: 01/22/17 13:57> Physical Exam Temperature: Afebrile Blood Pressure: Normal Pulse: Regular Respiratory Rate: Normal Appearance: Positive for: Well-Appearing, Non-Toxic, Comfortable Pain Distress: None Mental Status: Positive for: Alert and Oriented X 3 - Systems Exam Head: Present: Atraumatic, Normocephalic Pupils: Present: PERRL Extroacular Muscles: Present: EOMI Conjunctiva: Present: Normal Mouth: Present: Moist Mucous Membranes Neck: Present: Normal Range of Motion Respiratory/Chest: Present: Clear to Auscultation, Good Air Exchange. No: Respiratory Distress, Accessory Muscle Use Cardiovascular: Present: Regular Rate and Rhythm, Normal S1, S2. No: Murmurs Abdomen: Present: Normal Bowel Sounds. No: Tenderness, Distention, Peritoneal Signs, Rebound, Guarding Back: Present: Normal Inspection Upper Extremity: Present: Normal Inspection, Normal ROM, NORMAL PULSES, Neurovascularly Intact, Capillary Refill < 2s. No: Cyanosis, Edema Lower Extremity: Present: Normal Inspection, NORMAL PULSES, Normal ROM, Neurovascularly Intact, Capillary Refill < 2 s. No: Edema, CALF TENDERNESS Neurological: Present: GCS=15, CN II-XII Intact, Speech Normal, Motor Func Grossly Intact, Normal Sensory Function, Normal Cerebellar Funct, Gait Normal Skin: Present: Warm, Dry, Normal Color. No: Rashes, Abscess Psychiatric: Present: Alert, Oriented x 3, Normal Insight, Normal Concentration <Moon,Nahim P - Last Filed: 01/22/17 13:57> Medical Decision Making Re-evaluation Time: 14:00 Reassessment Condition: Re-examined, Improved <Moon,Nahim P - Last Filed: 01/22/17 13:57> <Jamie Almeida - Last Filed: 01/22/17 14:11> ED Course and Treatment: 01/22/17 14:00 This (Tania Moon) - PA / [employer] / Resident Statement MD/DO has examined the patient and agrees with the treatment plan. <Jamie Almeida - Last Filed: 01/22/17 14:11> Disposition/Present on Arrival - Present on Arrival Any Indicators Present on Arrival: No History of DVT/PE: No History of Uncontrolled Diabetes: No Urinary Catheter: No History of Decub. Ulcer: No History Surgical Site Infection Following: None - Disposition Have Diagnosis and Disposition been Completed?: Yes Disposition Time: 14:01 Patient Plan: Discharge <Tania Moon - Last Filed: 01/22/17 13:57> <Jamie Almeida - Last Filed: 01/22/17 14:11> - Disposition Diagnosis: Constipation, Musculoskeletal pain Disposition: HOME/ ROUTINE Condition: GOOD Discharge Instructions (ExitCare): Constipation (ED) Additional Instructions: Call Private doctor for follow up visit in 1-2 days. Take medication as instructed. Return to emergency if symptoms worsen. Prescriptions: Docusate [Colace] 100 mg PO BID #60 cap Polyethylene Glycol 3350 [Miralax] 17 gm PO DAILY #1 bottle Referrals: Gloria Enciso MD [Primary Care Provider] - Follow up with primary Forms: mimoOn ([place]ian)
== END 2017-01-22 14:21 | disposition home or self-care (01) ==
LOC: ED 13:12
DX: K59.00 Constipation, unspecified (principal); M79.1 Myalgia